=== PATIENT | male | born 1995 | race Caucasian/White ===

== ENCOUNTER 2020-11-15 08:11 | Emergency (ER) | payer OTHER, SELFPAY ==
--- NOTE | 2020-11-15 08:17 | ED.NAVMDI ---
HPI - Nausea/Vomiting/Diarrhea General Chief complaint: Nausea/Vomiting/Diarrhea Stated complaint: Fever, Body pain, vomitting, diarrhea Time Seen by Provider: 11/15/20 08:24 Source: patient and RN notes reviewed Mode of arrival: ambulatory Limitations: no limitations History of Present Illness HPI Narrative: 25-year-old male presents to the [facility] with complaints of fever, body pain, vomiting and diarrhea. Patient reports that it started , 2 days ago. Patient reports he has had 7-8 bouts of diarrhea per day for the last 2 days. States that he has been eating without issue, feels nausea last time he vomited was last night. Has taken flcx-gst-[id number] diarrhea medication. Has also taken Tylenol and drink Gatorade for aches and pains. Patient reports that he did take his blood pressure medication just prior to arrival. Patient states he has had a fever at 99.5. Patient has a history of hypertension, states that he took his medication just prior to arrival. Patient does not appear in distress or acutely ill. Nontoxic in appearance. MD elicited complaint: nausea, vomiting, diarrhea and abdominal pain Related Data Home Medications Medication Instructions Recorded Confirmed aripiprazole 5 mg PO DAILY 11/15/20 11/15/20 buspirone 20 mg PO BID 11/15/20 11/15/20 labetalol 400 mg PO BID 11/15/20 11/15/20 nifedipine 60 mg PO DAILY 11/15/20 11/15/20 spironolactone 25 mg PO DAILY 11/15/20 11/15/20 Allergies Allergy/AdvReac Type Severity Reaction Status Date / Time ciprofloxacin [From Cipro] Allergy Severe Anaphylactic Verified 11/15/20 08:28 Shock Review of Systems Review of Systems: All systems reviewed & are unremarkable except as noted in HPI and below Constitutional: Constitutional: Reports as per HPI and Reports fatigue ENT: Reports system reviewed and no additional complaints, except as documented Cardiovascular: Cardiovascular: Reports no additional cardiovascular complaints and Denies chest pain Respiratory: Respiratory: Reports no additional respiratory complaints, Denies chest congestion and Denies cough Gastrointestinal: Gastrointestinal: Reports as per HPI, Reports abdominal pain, Reports diarrhea, Reports nausea and Reports vomiting Musculoskeletal: Musculoskeletal: Reports no additional musculoskeletal complaints Integumentary/Breasts: Skin/Breast: Reports system reviewed and no additional complaints, except as docu Neurologic: Reports system reviewed and no additional complaints, except as documented Psychiatric: Psychiatric: Reports no additional psychiatric complaints Allergic/Immunologic: Allergic/Immunologic: Reports no additional allergic/immunologic complaints [facility] Past Medical History Medical History (Updated 11/15/20 @ 08:39 by Freda Guerin) Hypertension Paranoid schizophrenia Surgical History Surgical History (Updated 11/15/20 @ 08:34 by Freda Guerin) No significant past surgical history Family History Family History (Updated 11/15/20 @ 08:43 by Freda Guerin) Other Heart disease Hypertension Social History Social History (Updated 11/15/20 @ 08:35 by Freda Guerin) Smoking status: Never smoker Substance use type: marijuana Living arrangements: with family Gender identity (if verbalized by the patient): Male Comments At the time of my signature, I reviewed and agree with the nursing past medical, surgical, social, and family history. There is no relevant family history pertinent to the patient complaint. Exam Const: General: cooperative, healthy appearing, no acute distress and alert; No ill appearing or intoxicated appearing Nutritional Appearance: obese morbidly obese Orientation/consciousness: patient oriented x3 Limitations: no limitations HENMT: Head: normal to inspection, normocephalic and atraumatic Ears: hearing grossly normal bilaterally, external ears normal, TM's normal bilaterally and EAC's normal General nose exam: Norm
[2020-11-15 08:19] VITALS: BP 189/113; PULSE 111; RESP 24; TEMP 36.6; O2SAT 99
[2020-11-15 08:42] VITALS: BP 176/116
[2020-11-17 03:47] LABS: SARS-CoV-2 RNA PCR Negative
== END 2020-11-15 08:42 | disposition home or self-care (01) ==
PROVIDERS: Emergency Provider Nurse Practitioner
DX: K52.9 Noninfective gastroenteritis and colitis, unspecified (principal); Z20.822 Contact with and (suspected) exposure to COVID-19; I10 Essential (primary) hypertension
CPT/HCPCS: 99213; C9803; G0463; U0003; U0005